=== PATIENT | male | born 1950 | race Caucasian/White ===

== ENCOUNTER 2018-04-21 04:02 | Emergency (ER) | payer MEDICARE, OTHER ==
[~2018-04-21] VITALS: Ht 182.9 cm; Wt 80.0 kg
--- NOTE | 2018-04-21 04:09 | NUR ---
PT STATES MOTHER IN AND OUT OF HOSPITAL AND AWAY FROM FAMILY FOR HOLIDAYS. STATES INCREASING STRESSORS IN LIFE CURRENTLY AND FELT TONIGHT AN "IMPENDING DOOM" WHILE LYING IN BED TONIGHT. STATES FEELING LIKE THE WORLD WAS CLOSING IN AND HIS HEART WAS RACING. DENIES CP/SOB. DENIES ANY FURTHER MEDICAL COMPLAINTS. MONITORING APPLIED. VSS. CALL LIGHT WITHIN REACH.
[2018-04-21 05:23] LABS: BASOPHILS # (AUTO) 0.03 x10^3/uL (0-0.1); BASOPHILS % (AUTO) 1 % (0-1); EOSINOPHILS # (AUTO) 0.17 x10^3/uL (0-0.4); EOSINOPHILS % (AUTO) 2 % (1-7); LYMPHOCYTES # (AUTO) 1.78 x10^3/uL (1-3.4); LYMPHOCYTES % (AUTO) 25 % (22-44); MD NO; MEAN CORPUSCULAR HEMOGLOBIN 31.3 pg (27.5-34.5); MEAN CORPUSCULAR HGB CONC 33.9 g/dL (33.2-36.2); MEAN CORPUSCULAR VOLUME 92.4 fL (81-97); MEAN PLATELET VOLUME 7.1 fL (7.4-10.4); MONOCYTES # (AUTO) 0.62 x10^3/uL (0.2-0.8); MONOCYTES % (AUTO) 9 % (2-9); NEUTROPHILS # (AUTO) 4.67 x10^3/uL (1.8-6.8); NEUTROPHILS % (AUTO) 64 % (42-75); PLATELET COUNT 336 x10^3/uL (130-400); RED BLOOD COUNT 5.51 x10^6/uL (4.38-5.82); RED CELL DISTRIBUTION WIDTH 13.2 % (9.4-14.8)
[2018-04-21 05:34] LABS: ALBUMIN 3.7 g/dL (3.4-5.0); ANION GAP 6 mmol/L (5-15); CALCIUM 8.4 mg/dL (8.5-10.1); CHLORIDE 104 mmol/L (98-107)
[2018-04-21 05:39] LABS: ALANINE AMINOTRANSFERASE 27 U/L (12-78); ALKALINE PHOSPHATASE 57 U/L (45-117); BILIRUBIN,TOTAL 0.8 mg/dL (0.2-1.0); CREATININE 0.74 mg/dL (0.7-1.3); TOTAL PROTEIN 7.1 g/dL (6.4-8.2); TROPONIN I < 0.015 ng/mL (0.000-0.045)
[2018-04-21 05:45] VITALS: BP 138/105
--- NOTE | 2018-04-21 05:45 | NUR ---
ALL RESULTS BACK AND MD AT BEDSIDE FOR RECHECK. NADN. NO IMMEDIATE NEEDS FROM PT. VSS. CALL LIGHT WITHIN REACH.
== END 2018-04-21 05:54 | disposition home or self-care (01) ==
LOC: ED 04:21
DX: R42 Dizziness and giddiness (principal); R53.1 Weakness; Z00.01 Encounter for general adult medical examination with abnormal findings; I10 Essential (primary) hypertension
CPT/HCPCS: 36415; 71045; 80053; 84484; 85025; 93005; 99284

== ENCOUNTER 2018-11-16 05:00 | Emergency (ER) | payer MEDICARE, OTHER ==
[~2018-11-16] VITALS: Ht 182.9 cm; Wt 83.0 kg
[2018-11-16 05:57] VITALS: BP 95/61
== END 2018-11-16 07:05 | disposition home or self-care (01) ==
LOC: ED 06:37
DX: F41.1 Generalized anxiety disorder (principal); D75.1 Secondary polycythemia; I10 Essential (primary) hypertension
CPT/HCPCS: 74022; 80053; 82962; 83690; 83735; 84443; 84484; 85025; 93005; 99284; Q0162